=== PATIENT | male | born 1955 | race Caucasian/White ===

== ENCOUNTER 2022-10-18 15:36 | Emergency (ER) | payer MEDICARE, OTHER, SELFPAY ==
[2022-10-18 15:38] VITALS: BP 132/71; PULSE 69; RESP 14; O2SAT 97; BMI 26.2
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
[2022-10-18 16:39] VITALS: BP 130/68; PULSE 70; RESP 14; O2SAT 98
--- NOTE | 2022-10-20 15:18 | DCPLANNER ---
collections manager called patient due to no primary care physician - no answer at this time, recording stated number had been changed or disconnected, no longer in service. collections manager called phone number [phone].
== END 2022-10-18 16:41 | disposition home or self-care (01) ==
PROVIDERS: Emergency Provider Physician Assistant
DX: S90.02XA Contusion of left ankle, initial encounter (principal); V86.95XA Unspecified occupant of 3- or 4- wheeled all-terrain vehicle (ATV) injured in nontraffic accident, initial encounter
CPT/HCPCS: 73610; 73630; 99283

== ENCOUNTER → 2023-07-01 11:16 | Outpatient (BNVA) | payer MEDICARE, SELFPAY | PROVIDERS: PCP Nurse Practitioner Family; Visit Provider Nurse Practitioner Family | DX: E78.5 Hyperlipidemia, unspecified (principal); R73.03 Prediabetes; M19.90 Unspecified osteoarthritis, unspecified site; I25.10 Atherosclerotic heart disease of native coronary artery without angina pectoris; F41.9 Anxiety disorder, unspecified; F32.A Depression, unspecified; H93.19 Tinnitus, unspecified ear; H91.90 Unspecified hearing loss, unspecified ear | CPT/HCPCS: 80053; 80061; 83036; 84443; 85025 ==

== ENCOUNTER 2023-08-25 15:11 | Outpatient (CLI) | payer MEDICARE, SELFPAY ==
--- NOTE | 2023-08-25 15:15 | MR_ITS ---
WS: [id number] MRI BRAIN WITH HIGH-RESOLUTION IMAGING THROUGH THE INTERNAL AUDITORY CANALS WITHOUT AND WITH CONTRAST HISTORY: TINNITUS,UNSPECIFIED EAR/HEARING LOSS COMPARISON: None available. TECHNIQUE: Multiplanar, multisequence imaging is performed through the brain. Additional 3 mm imaging performed in multiple planes through the internal auditory canal. Postcontrast imaging with 16 ml's of MultiHance. No acute intracranial hemorrhage, midline shift, edema or mass effect. Mild symmetric atrophy. No prior infarct. Very minimal small vessel ischemic changes. Ventricles and extra-axial spaces are normal. No inferior displacement of cerebellar tonsils. Clivus and pituitary gland are normal. Internal and external auditory canals: Unremarkable. Cranial nerves VII and VIII complexes: Unremarkable. No enhancement or mass. Cerebellopontine angles: Normal. No mass or mass effect at the cerebellopontine angles. Paranasal sinuses: Normal. Mastoid air cells: Normal. Calvarium and scalp: Normal. Visualized [place] and dural venous sinuses demonstrate no abnormality. IMPRESSION: 1. Normal cerebellopontine angles and the IACs. No mass or mass effect. No abnormal enhancement. 2. Very mild cerebral atrophy related to aging and minimal small vessel ischemic disease. No prior i nfarct or hemorrhage. 3. No acute infarct.
[2023-08-25] MEDS: gadobenate dimeglumine 20 mL vial IV (16:07)
== END 2023-08-25 15:12 | disposition home or self-care (01) ==
LOC: RAD 15:11
PROVIDERS: PCP Nurse Practitioner Family; Visit Provider Specialist
DX: H93.19 Tinnitus, unspecified ear (principal); H91.90 Unspecified hearing loss, unspecified ear
CPT/HCPCS: 70553; A9577